=== PATIENT | female | born 1990 ===

== ENCOUNTER 2020-09-07 17:59 | Emergency (ER) | payer OTHER ==
--- NOTE | 2020-09-07 18:20 | NUR ---
cat sitter and MD exam completed. Straight cath for UA sample performed and walked to lab. production line technician arrived after cath procedure for lab draw.
[2020-09-07] MEDS ORDERED: PLEASE ENTER ALLERGIES MC SCH (18:30)
[2020-09-07] MEDS ORDERED: ONDANSETRON ODT 4 MG PO ONE (18:30)
--- NOTE | 2020-09-07 18:45 | NUR ---
Report given to WIN Marks and care transferred.
[2020-09-07 18:50] LABS: MICROSCOPIC NOT IND
[2020-09-07 18:52] LABS: ALANINE AMINOTRANSFERASE 23 U/L (12-78); ALBUMIN 3.6 g/dL (3.4-5.0); ANION GAP 4 mmol/L (5-15); CALCIUM 9.3 mg/dL (8.5-10.1); CHLORIDE 107 mmol/L (98-107); CREATININE 0.51 mg/dL (0.55-1.02)
[2020-09-07 18:53] LABS: BASOPHILS % (AUTO) 1 % (0-1); EOSINOPHILS % (AUTO) 2 % (1-7); LYMPHOCYTES % (AUTO) 30 % (22-44); MEAN CORPUSCULAR HEMOGLOBIN 29.6 pg (27.0-34.8); MEAN CORPUSCULAR HGB CONC 33.6 g/dL (32.4-35.8); MEAN PLATELET VOLUME 8.7 fL (7.4-10.4); MONOCYTES % (AUTO) 10 % (2-9); NEUTROPHILS % (AUTO) 58 % (42-75); PLATELET COUNT 295 x10^3/uL (130-400); RED CELL DISTRIBUTION WIDTH 12.6 % (9.6-15.2)
[2020-09-07] MEDS ORDERED: ONDANSETRON ODT 4 MG ONE (18:59)
[2020-09-07 19:09] LABS: ALKALINE PHOSPHATASE 59 U/L (45-117); BILIRUBIN,TOTAL 0.4 mg/dL (0.2-1.0); TOTAL PROTEIN 7.6 g/dL (6.4-8.2)
[2020-09-07] MEDS ORDERED: FURO20TA3 PO (19:18)
[2020-09-07] MEDS ORDERED: VIT1CAPS11 PO (19:18)
[2020-09-07] MEDS ORDERED: LOSA100T14 PO (19:18)
[2020-09-07] MEDS ORDERED: CALC0.25 PO (19:18)
[2020-09-07] MEDS ORDERED: METO-290 PO (19:18)
--- NOTE | 2020-09-07 19:33 | NUR ---
pt back from ultrasound, medicated per emar. no other needs at this time
[2020-09-07 20:30] VITALS: BP 108/69
== END 2020-09-07 21:05 | disposition home or self-care (01) ==
LOC: ED 18:29
DX: O03.4 Incomplete spontaneous abortion without complication (principal); O36.4XX0 Maternal care for intrauterine death, not applicable or unspecified; Z3A.01 Less than 8 weeks gestation of pregnancy
CPT/HCPCS: 36415; 76801; 80053; 81003; 84702; 85025; 86901; 99284; Q0162